=== PATIENT | female | born 1980 | race African-American/Black ===

== ENCOUNTER 2020-09-08 13:54 | Emergency (ER) | payer BC ==
[~2020-09-08] VITALS: Ht 157.5 cm; Wt 72.1 kg
== END 2020-09-08 18:56 | disposition home or self-care (01) ==
LOC: ER 13:54
DX: S81.822A Laceration with foreign body, left lower leg, initial encounter (principal); S81.821A Laceration with foreign body, right lower leg, initial encounter; W45.8XXA Other foreign body or object entering through skin, initial encounter; Y93.89 Activity, other specified; Y92.838 Other recreation area as the place of occurrence of the external cause; Y99.8 Other external cause status